=== PATIENT | male | born 1975 | race Two or more races ===

== ENCOUNTER 2023-01-09 20:02 | Inpatient (IN) | payer SELFPAY ==
[~2023-01-09] VITALS: Ht 170.2 cm; Wt 63.5 kg
[2023-01-09] MEDS ORDERED: PIPERACILLIN/TAZ 3.375G PREMIX 50 ML IV ONE (20:45)
[2023-01-09] MEDS ORDERED: SODIUM CHLORIDE 0.9% 1000ML BAG (SEPSIS BOLUS) IV ONE (20:45)
[2023-01-09 21:25] LABS: BASOPHILS % 0.4 % (0.0-2.0); HEMATOCRIT. 25.1 % (42.0-52.0); HEMOGLOBIN. 8.2 g/dL (14.0-18.0); LYMPHOCYTES % 13.6 % (20.0-50.0); MEAN CORPUSCULAR HGB CONC 32.7 g/dL (31.0-37.0); MEAN CORPUSCULAR VOLUME 116.2 fL (80.0-94.0); MONOCYTES % 3.6 % (2.0-8.0); NEUTROPHILS % 82.4 % (40.0-76.0); PLATELET 64 x1000/uL (130-400); RED BLOOD CELL COUNT 2.16 mill/uL (4.7-6.1); RED CELL DISTRIBUTION WIDTH 15.2 % (11.6-14.6); WHITE BLOOD COUNT 3.5 x1000/uL (4.5-11.0)
[2023-01-09 21:26] LABS: ADD RBC MORPHOLOGY YES; DIFFERENTIAL COMMENT 1
[2023-01-09 21:34] LABS: INR 1.7; PROTHROMBIN TIME 18.1 sec (9.6-11.0)
[2023-01-09 21:53] LABS: PLATELET ESTIMATE DECREASED
[2023-01-09 22:01] LABS: LACTIC ACID 7.5 mmol/L (0.4-2.0)
[2023-01-09 22:17] LABS: CHLORIDE 89 mEq/L (98-107); INDEX HEMOLYSI 1 (1-3); INDEX ICTERIC 2 (1-4); INDEX LIPEMIC 1 (1-3); SODIUM 128 mEq/L (136-145)
[2023-01-09 22:39] LABS: ALANINE AMINOTRANSFERASE 52 IU/L (13-61); ALBUMIN 2.7 g/dL (3.4-5.0); ASPARTATE AMINOTRANSFERASE 131 IU/L (15-37); BILIRUBIN TOTAL 3.5 mg/dL (0.1-1.0); CALCIUM 7.4 mg/dL (8.5-10.1); CREATININE 0.9 mg/dL (0.6-1.3); ETHANOL BLOOD 122 mg/dL (<10); GLUCOSE 73 mg/dL (70-105); NT PRO B-TYPE NATRIURETIC PEP 4532 pg/mL (5-125); PROTEIN TOTAL 8.1 g/dL (6.0-8.3); TROPONIN I HIGH SENSITIVITY 24 ng/L (<78); UREA NITROGEN BLOOD 6 mg/dL (7-21)
[2023-01-09] MEDS ORDERED: DEXTROSE 50% WATER 50ML SYRINGE IV ONE (22:45)
[2023-01-09] MEDS ORDERED: NOREPINEPHRINE 8 MG in DEXT 5% WATER 242 ML IV ONE (22:45)
[2023-01-09 22:55] LABS: CARBON DIOXIDE 8 mEq/L (21-32); POTASSIUM 2.6 mEq/L (3.5-5.1)
[2023-01-09 23:00] VITALS: PULSE 126; RESP 16
[2023-01-09] MEDS: NOREPINEPHRINE 8MG/250ML PMX 250 ML IV NR (23:00)
[2023-01-09] MEDS ORDERED: MIDAZOLAM HCL 100 MG in DEXT 5% WATER 80 ML IV ONE (23:15)
[2023-01-09] MEDS ORDERED: DEXT 5%/LACTATED RINGERS 1,000 ML IV ONE (23:15)
[2023-01-09] MEDS ORDERED: MIDAZOLAM HCL 100 MG in SODIUM CHLORIDE 0.9% 80 ML IV NR (23:15)
[2023-01-09] MEDS ORDERED: POTASSIUM CHLORIDE INJ 40 MEQ in DEXT 5% WATER 250 ML IV ONE (23:15)
[2023-01-09] MEDS ORDERED: VANCOMYCIN 1G PREMIX 200 ML IV SCH (23:15)
[2023-01-09] MEDS ORDERED: FENTANYL CITRATE/PF 50MCG/ML 2ML VIAL IV ONE (23:15)
[2023-01-09 23:41] LABS: TROPONIN I HIGH SENSITIVITY 27 ng/L (<78)
[2023-01-10] VITALS (95 sets, daily range): BP systolic 62–133; BP diastolic 50–111; PULSE 110–156; RESP 17–32; TEMP 91.6–98.3
[2023-01-10 00:51] LABS: BG BASE EXCESS -23.7 mmol/L (-2.0-2.0); BG CARBOXYHEMOGLOBIN 0.3 % (0.5-1.5); BG DEOXYHEMOGLOBIN 31.7 % (0.0-5.0); BG FRACTION INSPIRED OXYGEN 100; BG HCO3 ACT 7.5 mmol/L (22.0-26.0); BG METHEMOGLOBIN 0.2 % (0.0-1.5); BG OXYGEN SATURATION 68.1 % (92.0-98.5); BG OXYHEMOGLOBIN 67.8 % (94.0-97.0); BG PCO2 35.7 mmHg (35.0-45.0); BG PH 6.941 (7.350-7.450); BG PO2 58.7 mmHg (75.0-100.0); BG SAMPLE SITE RIGHT BRACHIAL; BG TOTAL HEMOGLOBIN 10.8 g/dL (12.0-18.0); BG VENT MODE VENT - AC
[2023-01-10] MEDS: KCL 20MEQ/100ML X 2 FOR TOTAL KCL 40MEQ/200ML IV SCH ×4 (00:55→15:52)
[2023-01-10 01:12] LABS: CLARITY URINE CLOUDY (CLEAR); COLOR URINE DARK YELLOW (YELLOW); GLUCOSE URINE TRACE (NEGATIVE); KETONES URINE 2+ (NEGATIVE); LEUKOCYTE ESTERASE URINE NEGATIVE (NEGATIVE); NITRITE URINE NEGATIVE (NEGATIVE); OCCULT BLOOD URINE TRACE (NEGATIVE); PROTEIN URINE 2+ (NEGATIVE); SPECIFIC GRAVITY URINE 1.014 (1.005-1.030)
[2023-01-10 01:15] LABS: BACTERIA URINE NONE SEEN; SQUAMOUS EPITHELIAL CELL URINE NONE SEEN /lpf (RARE/1+); YEAST URINE NONE SEEN
[2023-01-10 01:27] LABS: *AMPHETAMINES SCREEN URINE NEGATIVE (NEGATIVE); *BARBITURATES SCREEN URINE NEGATIVE (NEGATIVE); *BENZODIAZEPINES SCREEN URINE NEGATIVE (NEGATIVE); *COCAINE SCREEN URINE NEGATIVE (NEGATIVE); CANNABINOID URINE SCREEN NEGATIVE (NEGATIVE); ECSTASY MDMA SCREEN URINE NEGATIVE (NEGATIVE); OPIATES URINE SCREEN NEGATIVE (NEGATIVE); PHENCYCLIDINE URINE SCREEN NEGATIVE (NEGATIVE)
[2023-01-10] MEDS: NOREPINEPHRINE 8MG/250ML PMX 250 ML IV NR (02:07)
[2023-01-10 02:48] LABS: RBC URINE 0-2 /hpf (0-2); WBC URINE 0-2 /hpf (0-2)
[2023-01-10 02:49] LABS: HYALINE CASTS URINE 0-5 /lpf
[2023-01-10] MEDS ORDERED: NOREPINEPHRINE 8MG/250ML PMX 250 ML IV PRN (04:00)
[2023-01-10] MEDS ORDERED: SODIUM BICARBONATE 8.4% 1 MEQ/ML 50ML SYR IV NR ×5 (04:15→20:45)
[2023-01-10] MEDS ORDERED: METRONIDAZOLE 1000 MG PREMIX 200 ML IV SCH (04:45)
[2023-01-10] MEDS ORDERED: ENOXAPARIN 40MG/0.4ML SYR SUBCUT SCH (04:45)
[2023-01-10] MEDS ORDERED: PIPERACILLIN/TAZOBACTAM 3.375 G in DEXTROSE 5% WATER 50 ML IV SCH (04:45)
[2023-01-10] MEDS ORDERED: DEXT 5%/0.9% NACL 1,000 ML IV ONE (04:45)
[2023-01-10] MEDS: SODIUM BICARBONATE 100 MEQ in SODIUM CHLORIDE 0.45% 1,000 ML IV SCH ×2 (04:46→18:08)
[2023-01-10] MEDS ORDERED: DEXTROSE 50% WATER 50ML SYRINGE IV PRN ×2 (05:00→10:45)
[2023-01-10] MEDS ORDERED: BLOOD SUGAR DIAGNOSTIC STRIP TEST SCH ×2 (05:00→11:30)
[2023-01-10] MEDS ORDERED: PHENYLEPHRINE 100 MG in DEXT 5% WATER 240 ML IV PRN (06:00)
[2023-01-10] MEDS: NOREPINEPHRINE 32 MG in DEXT 5% WATER 218 ML IV PRN (06:15)
[2023-01-10] MEDS: PHENYLEPHRINE 100 MG in DEXT 5% WATER 240 ML IV PRN ×2 (06:21→17:36)
[2023-01-10] MEDS: METRONIDAZOLE 500 MG PREMIX 100 ML IV SCH ×3 (06:21→22:14)
[2023-01-10] MEDS ORDERED: THIAMINE HCL 200 MG in SODIUM CHLORIDE 0.9% 98 ML IV SCH (06:30)
[2023-01-10] MEDS ORDERED: INSULIN LISPRO 100 UNITS/ML SUBCUT SCH (07:00)
[2023-01-10 07:33] LABS: BASOPHILS % 0.2 % (0.0-2.0); EOSINOPHILS % 0.3 % (0.0-5.0); HEMATOCRIT. 27.9 % (42.0-52.0); HEMOGLOBIN. 8.9 g/dL (14.0-18.0); LYMPHOCYTES % 16.3 % (20.0-50.0); MEAN CORPUSCULAR HEMOGLOBIN 37.4 pg (28.0-32.0); MEAN PLATELET VOLUME 8.6 fl (7.4-10.4); MONOCYTES % 1.5 % (2.0-8.0); NEUTROPHILS % 81.7 % (40.0-76.0); PLATELET 89 x1000/uL (130-400); RED BLOOD CELL COUNT 2.38 mill/uL (4.7-6.1); RED CELL DISTRIBUTION WIDTH 15.4 % (11.6-14.6)
[2023-01-10 07:41] LABS: DIFFERENTIAL COMMENT 1
[2023-01-10 07:46] LABS: CALCIUM 6.4 mg/dL (8.5-10.1); CHLORIDE 94 mEq/L (98-107); INDEX HEMOLYSI 2 (1-3); INDEX ICTERIC 2 (1-4); INDEX LIPEMIC 1 (1-3); POTASSIUM 3.6 mEq/L (3.5-5.1); SODIUM 134 mEq/L (136-145)
[2023-01-10 07:53] LABS: CARBON DIOXIDE 10 mEq/L (21-32); CREATINE KINASE 157 IU/L (39-308); GLUCOSE 252 mg/dL (70-105); PHOSPHORUS 4.5 mg/dL (2.5-4.9); UREA NITROGEN BLOOD 6 mg/dL (7-21)
[2023-01-10 08:22] LABS: BG CARBOXYHEMOGLOBIN 0.3 % (0.5-1.5); BG DEOXYHEMOGLOBIN 0.4 % (0.0-5.0); BG HCO3 ACT 4.8 mmol/L (22.0-26.0); BG METHEMOGLOBIN 0.5 % (0.0-1.5); BG OXYGEN SATURATION 99.6 % (92.0-98.5); BG OXYHEMOGLOBIN 98.8 % (94.0-97.0); BG PCO2 18.6 mmHg (35.0-45.0); BG PH 7.034 (7.350-7.450); BG PO2 417.7 mmHg (75.0-100.0); BG SAMPLE SITE RIGHT BRACHIAL; BG VENT MODE VENT - AC
[2023-01-10] MEDS: CEFEPIME 1,000 MG in DEXTROSE 5% WATER 50 ML IV SCH ×2 (08:46→20:44)
[2023-01-10] MEDS ORDERED: CEFEPIME HCL 1000MG/VIAL INJ IM SCH (09:00)
[2023-01-10] MEDS ORDERED: SODIUM BICARBONATE 8.4% 1 MEQ/ML 50ML SYR IV ONE (09:45)
[2023-01-10] MEDS: VANCOMYCIN 750MG PREMIX 150 ML IV SCH ×2 (10:59→18:48)
[2023-01-10 11:07] LABS: BG BASE EXCESS -21.7 mmol/L (-2.0-2.0); BG CARBOXYHEMOGLOBIN 0.3 % (0.5-1.5); BG DEOXYHEMOGLOBIN 2.4 % (0.0-5.0); BG HCO3 ACT 6.3 mmol/L (22.0-26.0); BG METHEMOGLOBIN 0.3 % (0.0-1.5); BG OXYGEN SATURATION 97.6 % (92.0-98.5); BG PH 7.094 (7.350-7.450); BG PO2 134.2 mmHg (75.0-100.0); BG SAMPLE SITE RIGHT BRACHIAL; BG TOTAL HEMOGLOBIN 9.5 g/dL (12.0-18.0); BG VENT MODE VENT - AC
[2023-01-10 11:29] LABS: CALCIUM 6.8 mg/dL (8.5-10.1); CHLORIDE 95 mEq/L (98-107); INDEX HEMOLYSI 2 (1-3); INDEX ICTERIC 2 (1-4); INDEX LIPEMIC 1 (1-3); SODIUM 136 mEq/L (136-145); UREA NITROGEN BLOOD 7 mg/dL (7-21)
[2023-01-10] MEDS: INSULIN LISPRO 100 UNITS/ML SUBCUT SCH ×3 (11:32→21:00)
[2023-01-10 11:36] LABS: CREATININE 1.2 mg/dL (0.6-1.3); GLUCOSE 137 mg/dL (70-105)
[2023-01-10 11:39] LABS: POTASSIUM 2.8 mEq/L (3.5-5.1)
[2023-01-10 11:40] LABS: CARBON DIOXIDE 7 mEq/L (21-32); TROPONIN I HIGH SENSITIVITY 1062 ng/L (<78)
[2023-01-10 11:58] LABS: LACTIC ACID 18.5 mmol/L (0.4-2.0)
[2023-01-10] MEDS: BLOOD SUGAR DIAGNOSTIC STRIP TEST SCH ×3 (12:00→20:10)
[2023-01-10] MEDS ORDERED: VANCOMYCIN 1G PREMIX 200 ML IV SCH (12:00)
[2023-01-10] MEDS ORDERED: POTASSIUM CHLORIDE INJ 40 MEQ in DEXT 5% WATER 250 ML IV ONE (12:00)
[2023-01-10 12:57] LABS: INDEX HEMOLYSI 1 (1-3)
[2023-01-10] MEDS: PANTOPRAZOLE SODIUM 40 MG/VIAL IV SCH ×2 (12:58→21:25)
[2023-01-10] MEDS ORDERED: FOLIC ACID 1 MG in SODIUM CHLORIDE 0.9% 500 ML IV ONE (13:00)
[2023-01-10] MEDS: IPRATROPIUM BROMIDE (0.02%) 0.5MG/2.5ML NEB HHN SCH ×3 (13:04→21:08)
[2023-01-10 13:23] LABS: HEMOGLOBIN 8.5 g/dL (14.0-18.0)
[2023-01-10 13:29] LABS: VITAMIN B12 SERUM > 2000.0 pg/mL (211-911)
[2023-01-10] MEDS ORDERED: OCTREOTIDE 1,000 MCG in SODIUM CHLORIDE 0.9% 98 ML IV SCH (13:30)
[2023-01-10 13:35] LABS: HEPATITIS B SURFACE ANTIGEN NEGATIVE
[2023-01-10 13:49] LABS: FERRITIN 1952 ng/mL (22-322)
[2023-01-10 14:02] LABS: HEPATITIS C VIR.AB 0.14 INDEXVAL (0.00-0.80)
[2023-01-10 14:03] LABS: HEPATITIS B CORE AB IGM NEGATIVE
[2023-01-10 14:04] LABS: HEPATITIS A AB IGM NEGATIVE (NEGATIVE)
[2023-01-10] MEDS ORDERED: LACTATED RINGERS 500 ML IV ONE (14:45)
[2023-01-10 14:48] LABS: INDEX HEMOLYSI 3 (1-3); INDEX HEMOLYSI 4 (1-3); INDEX ICTERIC 2 (1-4); INDEX LIPEMIC 1 (1-3)
[2023-01-10 14:54] LABS: INDEX HEMOLYSI 4 (1-3)
[2023-01-10 15:02] LABS: CREATINE KINASE 185 IU/L (39-308)
[2023-01-10 15:10] LABS: AMMONIA 107 uMol/L (<32)
[2023-01-10 15:19] LABS: IRON 126 ug/dL (50-175); TOTAL IRON BINDING CAPACITY 161 ug/dL (250-450)
[2023-01-10] MEDS: VASOPRESSIN 20 UNIT in SODIUM CHLORIDE 0.9% 99 ML IV PRN (16:32)
[2023-01-10 17:13] LABS: BG CARBOXYHEMOGLOBIN 0.3 % (0.5-1.5); BG DEOXYHEMOGLOBIN 4.6 % (0.0-5.0); BG FRACTION INSPIRED OXYGEN 50; BG HCO3 ACT 7.8 mmol/L (22.0-26.0); BG METHEMOGLOBIN 0.3 % (0.0-1.5); BG OXYGEN SATURATION 95.4 % (92.0-98.5); BG OXYHEMOGLOBIN 94.8 % (94.0-97.0); BG PCO2 21.9 mmHg (35.0-45.0); BG PO2 99.1 mmHg (75.0-100.0); BG SAMPLE SITE RIGHT RADIAL; BG TOTAL HEMOGLOBIN 8.8 g/dL (12.0-18.0); BG VENT MODE VENT - AC/VC
[2023-01-10] MEDS: LACTATED RINGERS 1,000 ML IV SCH (18:08)
[2023-01-10] MEDS ORDERED: SODIUM CHLORIDE 0.9% 1,000 ML IV SCH (19:00)
[2023-01-10 20:38] LABS: CALCIUM 6.1 mg/dL (8.5-10.1); CREATININE 1.5 mg/dL (0.6-1.3)
[2023-01-10] MEDS ORDERED: ALBUMIN HUMAN 12.5GM/50ML (25%) IV NR (20:45)
[2023-01-10] MEDS: MIDAZOLAM HCL 100 MG in SODIUM CHLORIDE 0.9% 80 ML IV PRN (21:00)
[2023-01-10] MEDS: LACTULOSE 20G/30ML UDC PO SCH (21:56)
[2023-01-11] VITALS (42 sets, daily range): BP systolic 93–124; BP diastolic 42–93; PULSE 128–152; RESP 19–27; TEMP 97.8–99.2; O2SAT 100
[2023-01-11] LABS: BG BASE EXCESS -12.9 mmol/L (-2.0-2.0); BG CARBOXYHEMOGLOBIN 0.3 % (0.5-1.5); BG DEOXYHEMOGLOBIN 22.5 % (0.0-5.0); BG FRACTION INSPIRED OXYGEN 50; BG HCO3 ACT 11.9 mmol/L (22.0-26.0); BG METHEMOGLOBIN 0.4 % (0.0-1.5); BG OXYGEN SATURATION 77.3 % (92.0-98.5); BG OXYHEMOGLOBIN 76.8 % (94.0-97.0); BG PCO2 23.9 mmHg (35.0-45.0); BG PH 7.314 (7.350-7.450); BG SAMPLE SITE RIGHT BRACHIAL; BG TOTAL HEMOGLOBIN 8.8 g/dL (12.0-18.0); BG VENT MODE VENT - AC
[2023-01-11] MEDS: BLOOD SUGAR DIAGNOSTIC STRIP TEST SCH ×3 (00:01→08:00)
[2023-01-11] MEDS ORDERED: SODIUM BICARBONATE 8.4% 1 MEQ/ML 50ML SYR IV NR (00:45)
[2023-01-11] MEDS: KCL 20MEQ/100ML PREMIX 100 ML IV SCH ×2 (01:10→03:13)
[2023-01-11] MEDS: VASOPRESSIN 20 UNIT in SODIUM CHLORIDE 0.9% 99 ML IV PRN ×2 (01:45→09:36)
[2023-01-11] MEDS: LACTATED RINGERS 1,000 ML IV SCH (01:45)
[2023-01-11] MEDS: PHENYLEPHRINE 100 MG in DEXT 5% WATER 240 ML IV PRN (01:46)
[2023-01-11] MEDS: MIDAZOLAM HCL 100 MG in SODIUM CHLORIDE 0.9% 80 ML IV PRN (01:46)
[2023-01-11] MEDS: VANCOMYCIN 750MG PREMIX 150 ML IV SCH (02:37)
[2023-01-11] MEDS: IPRATROPIUM BROMIDE (0.02%) 0.5MG/2.5ML NEB HHN SCH ×3 (02:58→12:27)
[2023-01-11] MEDS: OCTREOTIDE 1,000 MCG in SODIUM CHLORIDE 0.9% 98 ML IV SCH ×2 (03:12→04:35)
[2023-01-11 04:28] LABS: HEMATOCRIT. 22.8 % (42.0-52.0); HEMOGLOBIN. 7.2 g/dL (14.0-18.0); MEAN CORPUSCULAR HEMOGLOBIN 37.1 pg (28.0-32.0); MEAN CORPUSCULAR HGB CONC 31.6 g/dL (31.0-37.0); MEAN CORPUSCULAR VOLUME 117.3 fL (80.0-94.0); MEAN PLATELET VOLUME 9.6 fl (7.4-10.4); PLATELET 57 x1000/uL (130-400); RED BLOOD CELL COUNT 1.94 mill/uL (4.7-6.1); RED CELL DISTRIBUTION WIDTH 15.8 % (11.6-14.6); WHITE BLOOD COUNT 8.2 x1000/uL (4.5-11.0)
[2023-01-11 04:32] LABS: ADD RBC MORPHOLOGY YES; DIFFERENTIAL COMMENT 1
[2023-01-11] MEDS: SODIUM BICARBONATE 100 MEQ in SODIUM CHLORIDE 0.45% 1,000 ML IV SCH (04:35)
[2023-01-11 04:38] LABS: PROTHROMBIN TIME 29.9 sec (9.6-11.0)
[2023-01-11 04:39] LABS: CHLORIDE 93 mEq/L (98-107); INDEX HEMOLYSI 2 (1-3); INDEX ICTERIC 2 (1-4); INDEX LIPEMIC 1 (1-3); POTASSIUM 3.4 mEq/L (3.5-5.1); SODIUM 142 mEq/L (136-145)
[2023-01-11 04:45] LABS: AMMONIA 50 uMol/L (<32)
[2023-01-11] MEDS: NOREPINEPHRINE 32 MG in DEXT 5% WATER 218 ML IV PRN (04:45)
[2023-01-11 04:57] LABS: ALANINE AMINOTRANSFERASE 194 IU/L (13-61); ALBUMIN 2.1 g/dL (3.4-5.0); ASPARTATE AMINOTRANSFERASE 1319 IU/L (15-37); BILIRUBIN DIRECT 3.5 mg/dL (0.0-0.2); BILIRUBIN TOTAL 4.8 mg/dL (0.1-1.0); CALCIUM 6.3 mg/dL (8.5-10.1); CARBON DIOXIDE 13 mEq/L (21-32); CREATININE 1.6 mg/dL (0.6-1.3); GLUCOSE 106 mg/dL (70-105); PROTEIN TOTAL 5.8 g/dL (6.0-8.3); T4 FREE 1.28 ng/dL (0.76-1.46); UREA NITROGEN BLOOD 8 mg/dL (7-21)
[2023-01-11] MEDS ORDERED: DEXT 5%/0.9% NACL 1,000 ML IV SCH (05:15)
[2023-01-11] MEDS: METRONIDAZOLE 500 MG PREMIX 100 ML IV SCH (05:24)
[2023-01-11] MEDS: LACTULOSE 20G/30ML UDC PO SCH (05:24)
[2023-01-11 07:41] LABS: BG BASE EXCESS 0.7 mmol/L (-2.0-2.0); BG CARBOXYHEMOGLOBIN 0.9 % (0.5-1.5); BG DEOXYHEMOGLOBIN 4.4 % (0.0-5.0); BG HCO3 ACT 24.5 mmol/L (22.0-26.0); BG OXYGEN SATURATION 95.6 % (92.0-98.5); BG OXYHEMOGLOBIN 94.7 % (94.0-97.0); BG PCO2 36.1 mmHg (35.0-45.0); BG PO2 76.9 mmHg (75.0-100.0); BG SAMPLE SITE ALINE; BG TOTAL HEMOGLOBIN 10.6 g/dL (12.0-18.0); BG VENT MODE VENT - AC
[2023-01-11 07:41] LABS: NUCLEATED RED BLOOD CELLS 2 /100 WBC; PLATELET ESTIMATE MARKEDLY DECREASED; TOXIC VACUOLATION 2+
[2023-01-11 07:42] LABS: ANISOCYTOSIS 1+
[2023-01-11] MEDS ORDERED: INSULIN LISPRO 100 UNITS/ML SUBCUT SCH (08:00)
[2023-01-11] MEDS ORDERED: POTASSIUM CHLORIDE 20MEQ TABLET SR PO NR (08:49)
[2023-01-11] MEDS ORDERED: KCL 20MEQ/100ML PREMIX 100 ML IV SCH (09:30)
[2023-01-11] MEDS: PANTOPRAZOLE SODIUM 40 MG/VIAL IV SCH (09:55)
[2023-01-11] MEDS ORDERED: MORPHINE SULFATE 250 MG in DEXT 5% WATER 225 ML IV PRN (12:00)
[2023-01-11] MEDS ORDERED: SODIUM BICARBONATE 8.4% 1 MEQ/ML 50ML SYR IV ONE (15:37)
== END 2023-01-11 17:10 | DRG 720 ==
LOC: ER 20:02 → MICUSO 01-10 00:38 → EDBEDREQ 01-10 00:43 → EDBEDREQSVC 01-10 00:43
PROVIDERS: ADMIT Preventive Medicine Clinical Informatics; ATTEND Preventive Medicine Clinical Informatics
PROC: 5A12012 Performance of Cardiac Output, Single, Manual (ICD-10-PCS; principal; 2023-01-10)
PROC: 5A1945Z Respiratory Ventilation, 24-96 Consecutive Hours (ICD-10-PCS; 2023-01-10)
PROC: 0BH17EZ Insertion of Endotracheal Airway into Trachea, Via Natural or Artificial Opening (ICD-10-PCS; 2023-01-10)
PROC: 02HV33Z Insertion of Infusion Device into Superior Vena Cava, Percutaneous Approach (ICD-10-PCS; 2023-01-10)
PROC: B548ZZA Ultrasonography of Superior Vena Cava, Guidance (ICD-10-PCS; 2023-01-10)
PROC: 30233N1 Transfusion of Nonautologous Red Blood Cells into Peripheral Vein, Percutaneous Approach (ICD-10-PCS; 2023-01-10)
PROC: 03HY32Z Insertion of Monitoring Device into Upper Artery, Percutaneous Approach (ICD-10-PCS; 2023-01-10)
DX: A41.9 Sepsis, unspecified organism (principal); I46.9 Cardiac arrest, cause unspecified; J96.01 Acute respiratory failure with hypoxia; R65.21 Severe sepsis with septic shock; D61.818 Other pancytopenia; E43 Unspecified severe protein-calorie malnutrition; G92.8 Other toxic encephalopathy; E72.20 Disorder of urea cycle metabolism, unspecified; E87.29 Other acidosis; E11.21 Type 2 diabetes mellitus with diabetic nephropathy; D53.9 Nutritional anemia, unspecified; Z66 Do not resuscitate; F10.229 Alcohol dependence with intoxication, unspecified; E87.6 Hypokalemia; K70.31 Alcoholic cirrhosis of liver with ascites; D75.89 Other specified diseases of blood and blood-forming organs; N13.30 Unspecified hydronephrosis; N17.9 Acute kidney failure, unspecified; I21.4 Non-ST elevation (NSTEMI) myocardial infarction; D63.8 Anemia in other chronic diseases classified elsewhere; M62.84 Sarcopenia; L89.159 Pressure ulcer of sacral region, unspecified stage; E87.1 Hypo-osmolality and hyponatremia; G31.2 Degeneration of nervous system due to alcohol; E11.649 Type 2 diabetes mellitus with hypoglycemia without coma; Z68.21 Body mass index [BMI] 21.0-21.9, adult; Z91.199 Patient's noncompliance with other medical treatment and regimen due to unspecified reason
CPT/HCPCS: 36415; 36600; 71045; 76700; 76770; 80048; 80053; 80076; 80202; 80305; 80320; 81003; 82010; 82140; 82375; 82533; 82550; 82607; 82728; 82746; 82805; 82962; 83036; 83540; 83550; 83605; 83735; 83880; 83930; 84100; 84145; 84439; 84443; 84484; 85018; 85025; 85044; 86705; 86709; 86803; 86850; 86900; 86920; 87340; 93005; 93306; 94002; 94003; 94640; 99291; C9113; J0692; J2250; J2270; J2354; J2370; J2543; J3010; J3370; J3411; J3480; J3490; J7030; J7040; J7050; J7060; J7120; P9016; P9047; A4315; G0480